=== PATIENT | female | born 1975 | race African-American/Black ===

== ENCOUNTER 2017-05-25 22:22 | Emergency (ER) | payer MEDICAID ==
[~2017-05-25] VITALS: Ht 180.3 cm; Wt 154.0 kg
[~2017-05-25 22:22] MED LIST: ALBUTEROL; FLOV44
[2017-05-25] MEDS ORDERED: ONDANSETRON HCL 4MG/2ML VIAL IV STA (23:08)
[2017-05-25] MEDS ORDERED: MORPHINE SULFATE 4 MG/ML CPJ (NOT FOR IM USE) IV STA (23:08)
[2017-05-25] MEDS ORDERED: FAMOTIDINE 20MG/2ML VIAL IV STA (23:08)
[2017-05-25] MEDS ORDERED: SODIUM CHLORIDE 0.9% 1,000 ML IV ONE (23:08)
[2017-05-25 23:30] LABS: BASOPHILS % 0.7 % (0.0-2.0); EOSINOPHILS % 0.4 % (0.0-5.0); HEMATOCRIT. 33.1 % (36.0-48.0); HEMOGLOBIN. 10.8 g/dL (12.0-16.0); LYMPHOCYTES % 12.5 % (20.0-50.0); MEAN CORPUSCULAR HEMOGLOBIN 25.4 pg (28.0-32.0); MEAN CORPUSCULAR VOLUME 77.7 fL (81.0-99.0); MEAN PLATELET VOLUME 7.3 fl (7.4-10.4); NEUTROPHILS % 83.4 % (40.0-76.0); PLATELET 475 x1000/uL (130-400); RED BLOOD CELL COUNT 4.26 mill/uL (4.2-5.4)
[2017-05-25 23:38] LABS: CARBON DIOXIDE 28 mEq/L (21-32); CHLORIDE 102 mEq/L (98-107); ETHANOL BLOOD < 10 mg/dL
[2017-05-26 00:33] LABS: CLARITY URINE CLOUDY (CLEAR); COLOR URINE YELLOW (YELLOW); KETONES URINE NEGATIVE (NEGATIVE); LEUKOCYTE ESTERASE URINE NEGATIVE (NEGATIVE); NITRITE URINE NEGATIVE (NEGATIVE); OCCULT BLOOD URINE NEGATIVE (NEGATIVE); PH URINE >=9.0 (4.5-8.0); PROTEIN URINE TRACE (NEGATIVE); SPECIFIC GRAVITY URINE 1.024 (1.005-1.030); UROBILINOGEN URINE 0.2 E.U./dL (0.2-1.0)
[2017-05-26 00:47] LABS: *AMPHETAMINES SCREEN URINE NEGATIVE (NEGATIVE); *BARBITURATES SCREEN URINE NEGATIVE (NEGATIVE); *BENZODIAZEPINES SCREEN URINE NEGATIVE (NEGATIVE); *COCAINE SCREEN URINE NEGATIVE (NEGATIVE); METHADONE URINE SCREEN NEGATIVE (NEGATIVE); PHENCYCLIDINE URINE SCREEN NEGATIVE (NEGATIVE)
[2017-05-26 01:03] LABS: CANNABINOID URINE SCREEN PRESUMTIVE POSITIVE (NEGATIVE); OPIATES URINE SCREEN PRESUMTIVE POSITIVE (NEGATIVE)
[2017-05-26] MEDS ORDERED: SODIUM CHLORIDE 0.9% 1,000 ML IV ONE (02:24)
[2017-05-26] MEDS ORDERED: MORPHINE SULFATE 4 MG/ML CPJ (NOT FOR IM USE) IV STA (02:24)
[2017-05-26] MEDS ORDERED: ONDANSETRON 4MG ODT PO STA (02:24)
[2017-05-26] MEDS ORDERED: LORAZEPAM 2MG/ML CPJ IV ONE (04:45)
[2017-05-26 06:28] VITALS: BP 128/75
== END 2017-05-26 07:18 | disposition home or self-care (01) ==
LOC: ER 22:22
DX: K52.9 Noninfective gastroenteritis and colitis, unspecified (principal); R06.02 Shortness of breath; Z88.6 Allergy status to analgesic agent; Z88.8 Allergy status to other drugs, medicaments and biological substances
CPT/HCPCS: 36415; 71010; 74176; 80053; 80305; 81001; 81025; 83690; 85025; 96361; 96374; 96375; 96376; 99285; G0482; J2060; J2270; J2405; J3490; J7030; Q0162; Z7610

== ENCOUNTER 2018-02-06 13:22 | Inpatient (IN) | payer SELFPAY ==
[~2018-02-06] VITALS: Ht 180.3 cm; Wt 179.2 kg
[2018-02-06] MEDS ORDERED: MORPHINE SULFATE 4 MG/ML CPJ (NOT FOR IM USE) IV STA (13:55)
[2018-02-06] MEDS ORDERED: SODIUM CHLORIDE 0.9% 1,000 ML IV ONE (13:55)
[2018-02-06] MEDS ORDERED: FAMOTIDINE 20MG/2ML VIAL IV STA (13:55)
[2018-02-06] MEDS ORDERED: ONDANSETRON HCL 4MG/2ML INJ IV STA (13:55)
[2018-02-06 16:25] LABS: BASOPHILS % 0.9 % (0.0-2.0); EOSINOPHILS % 0.5 % (0.0-5.0); HEMATOCRIT. 32.9 % (36.0-48.0); HEMOGLOBIN. 10.6 g/dL (12.0-16.0); LYMPHOCYTES % 11.6 % (20.0-50.0); MEAN CORPUSCULAR HEMOGLOBIN 23.8 pg (28.0-32.0); MEAN CORPUSCULAR VOLUME 73.9 fL (81.0-99.0); MEAN PLATELET VOLUME 7.2 fl (7.4-10.4); MONOCYTES % 3.5 % (2.0-8.0); NEUTROPHILS % 83.5 % (40.0-76.0); PLATELET 453 x1000/uL (130-400); RED BLOOD CELL COUNT 4.45 mill/uL (4.2-5.4); RED CELL DISTRIBUTION WIDTH 17.7 % (11.6-14.6)
[2018-02-06 16:30] LABS: CHLORIDE 102 mEq/L (98-107)
[2018-02-06 16:42] LABS: CLARITY URINE CLEAR (CLEAR); COLOR URINE YELLOW (YELLOW); KETONES URINE NEGATIVE (NEGATIVE); LEUKOCYTE ESTERASE URINE NEGATIVE (NEGATIVE); NITRITE URINE NEGATIVE (NEGATIVE); OCCULT BLOOD URINE NEGATIVE (NEGATIVE); PH URINE >=9.0 (4.5-8.0); PROTEIN URINE NEGATIVE (NEGATIVE); SPECIFIC GRAVITY URINE 1.019 (1.005-1.030); UROBILINOGEN URINE 0.2 E.U./dL (0.2-1.0)
[2018-02-06] MEDS ORDERED: ENALAPRIL 2.5MG/2ML VIAL 2ML IV ONE (16:45)
[2018-02-06] MEDS ORDERED: PIPERACILLIN/TAZ 3.375G PREMIX 50 ML IV ONE (16:45)
[2018-02-06 16:47] LABS: HCG SCREEN NEGATIVE
[2018-02-06 16:55] LABS: *AMPHETAMINES SCREEN URINE NEGATIVE (NEGATIVE); *BARBITURATES SCREEN URINE NEGATIVE (NEGATIVE); *BENZODIAZEPINES SCREEN URINE NEGATIVE (NEGATIVE); *COCAINE SCREEN URINE NEGATIVE (NEGATIVE); METHADONE URINE SCREEN NEGATIVE (NEGATIVE)
[2018-02-06 16:56] LABS: PHENCYCLIDINE URINE SCREEN NEGATIVE (NEGATIVE)
[2018-02-06 16:57] LABS: CANNABINOID URINE SCREEN PRESUMTIVE POSITIVE (NEGATIVE); OPIATES URINE SCREEN PRESUMTIVE POSITIVE (NEGATIVE)
[2018-02-06] MEDS ORDERED: ONDANSETRON HCL 4MG/2ML INJ IV PRN (17:45)
[2018-02-06] MEDS ORDERED: ACETAMINOPHEN 650MG SUPP PR PRN (17:45)
[2018-02-06] MEDS ORDERED: ACETAMINOPHEN 325MG TABLET PO PRN (17:45)
[2018-02-06] MEDS ORDERED: ACETAMINOPHEN 650MG/20.3ML UDC GT PRN (17:45)
[2018-02-06 20:00] VITALS: BP 165/85
[2018-02-06] MEDS ORDERED: ONDANSETRON 4MG ODT PO PRN (20:00)
[2018-02-06] MEDS ORDERED: ALBU18HF2 IH (20:44)
[2018-02-06] MEDS ORDERED: ATROV IH (20:44)
[2018-02-06] MEDS: CLONIDINE 0.1MG TABLET PO SCH (21:28)
[2018-02-06] MEDS: HYDROCODONE/ACETAMINOPHEN 5/325MG TABLET PO PRN (21:32)
[2018-02-06 22:23] VITALS: BP 168/85
[2018-02-06] MEDS ORDERED: PROMETHAZINE/DEXTROMETHORPHAN 6.25-15MG/5ML BOTTLE 120ML PO PRN (23:00)
[2018-02-07] VITALS (7 sets, daily range): BP systolic 133–156; BP diastolic 43–92
[2018-02-07 00:40] LABS: CREATINE KINASE 128 IU/L (26-192); CREATINE KINASE MB FRACTION 1.1 ng/mL (0.5-3.6)
[2018-02-07] MEDS: HYDROCODONE/ACETAMINOPHEN 5/325MG TABLET PO PRN (02:11)
[2018-02-07 07:27] LABS: BASOPHILS % 0.3 % (0.0-2.0); EOSINOPHILS % 2.5 % (0.0-5.0); HEMATOCRIT. 27.5 % (36.0-48.0); HEMOGLOBIN. 9.1 g/dL (12.0-16.0); LYMPHOCYTES % 27.7 % (20.0-50.0); MEAN CORPUSCULAR HEMOGLOBIN 24.3 pg (28.0-32.0); MEAN CORPUSCULAR VOLUME 73.9 fL (81.0-99.0); MEAN PLATELET VOLUME 7.4 fl (7.4-10.4); MONOCYTES % 4.8 % (2.0-8.0); NEUTROPHILS % 64.7 % (40.0-76.0); PLATELET 399 x1000/uL (130-400); RED BLOOD CELL COUNT 3.73 mill/uL (4.2-5.4)
[2018-02-07 07:38] LABS: CHLORIDE 105 mEq/L (98-107)
[2018-02-07 07:46] LABS: LDL CHOLESTEROL 85 mg/dL (5-100)
[2018-02-07 07:47] LABS: CREATINE KINASE 113 IU/L (26-192); CREATINE KINASE MB FRACTION < 1.0 ng/mL (0.5-3.6); HDL CHOLESTEROL 18 mg/dL (40-59); T4 FREE 0.98 ng/dL (0.76-1.46)
[2018-02-07] MEDS: CLONIDINE 0.1MG TABLET PO SCH (08:47)
[2018-02-07] MEDS ORDERED: LOSARTAN POTASSIUM 50 MG TABLET PO SCH (09:00)
[2018-02-07] MEDS ORDERED: OMEPRAZOLE 20MG CAPSULE EXTENDED RELEASE PO SCH (10:45)
[2018-02-07] MEDS ORDERED: PROMETHAZINE HCL 25MG TABLET PO PRN (12:15)
[2018-02-07 14:16] LABS: TOTAL IRON BINDING CAPACITY 268 ug/dL (250-450)
[2018-02-07 14:44] LABS: FOLIC ACID (FOLATE) SERUM 4.7 ng/mL (>5.38)
== END 2018-02-07 15:48 | disposition left against medical advice (07) ==
LOC: ER 14:01 → 6WST 16:31 → ENRESERV 17:09 → 6WST 19:00 → 3WST 23:25
PROVIDERS: ADMIT Internal Medicine; ATTEND Internal Medicine
DX: K80.20 Calculus of gallbladder without cholecystitis without obstruction (principal); E66.01 Morbid (severe) obesity due to excess calories; R16.0 Hepatomegaly, not elsewhere classified; E88.09 Other disorders of plasma-protein metabolism, not elsewhere classified; K92.2 Gastrointestinal hemorrhage, unspecified; Z68.43 Body mass index [BMI] 50.0-59.9, adult; D64.9 Anemia, unspecified; J44.9 Chronic obstructive pulmonary disease, unspecified; I10 Essential (primary) hypertension; G89.29 Other chronic pain; D72.829 Elevated white blood cell count, unspecified; E87.6 Hypokalemia; M54.9 Dorsalgia, unspecified; Z53.21 Procedure and treatment not carried out due to patient leaving prior to being seen by health care provider; Z82.49 Family history of ischemic heart disease and other diseases of the circulatory system; Z98.891 History of uterine scar from previous surgery; Z88.8 Allergy status to other drugs, medicaments and biological substances; Z79.899 Other long term (current) drug therapy
CPT/HCPCS: 36415; 71045; 76705; 80053; 80061; 80305; 81003; 82550; 82553; 82607; 82728; 82746; 83540; 83550; 83690; 84439; 84443; 84481; 84484; 84703; 85025; 87040; 93005; 96361; 96374; 96375; 99291; J2270; J2405; J2543; J3490; J7030

== ENCOUNTER 2018-12-31 19:55 | Emergency (ER) | payer SELFPAY ==
[~2018-12-31] VITALS: Ht 170.2 cm; Wt 147.0 kg
[~2018-12-31 19:55] MED LIST changes: +ALBU18HF2 IH; -ALBUTEROL; +ATROV IH; -FLOV44
[2018-12-31] MEDS ORDERED: SODIUM CHLORIDE 0.9% 1,000 ML IV ONE (20:40)
[2018-12-31] MEDS ORDERED: MORPHINE SULFATE 4 MG/ML CPJ (NOT FOR IM USE) IV STA (20:40)
[2018-12-31] MEDS ORDERED: ONDANSETRON HCL 4MG/2ML INJ IV STA (20:40)
[2018-12-31] MEDS ORDERED: FAMOTIDINE 20MG/2ML VIAL IV ONE (20:45)
[2018-12-31 21:20] LABS: BASOPHILS % 0.5 % (0.0-2.0); EOSINOPHILS % 0.3 % (0.0-5.0); HEMATOCRIT. 31.6 % (36.0-48.0); HEMOGLOBIN. 9.9 g/dL (12.0-16.0); LYMPHOCYTES % 13.8 % (20.0-50.0); MEAN CORPUSCULAR HEMOGLOBIN 21.9 pg (28.0-32.0); MEAN CORPUSCULAR VOLUME 69.9 fL (81.0-99.0); MEAN PLATELET VOLUME 7.5 fl (7.4-10.4); MONOCYTES % 4.1 % (2.0-8.0); NEUTROPHILS % 81.3 % (40.0-76.0); PLATELET 431 x1000/uL (130-400); RED BLOOD CELL COUNT 4.52 mill/uL (4.2-5.4); RED CELL DISTRIBUTION WIDTH 19.1 % (11.6-14.6)
[2018-12-31 21:21] LABS: CHLORIDE 103 mEq/L (98-107); PROTHROMBIN TIME 10.1 sec (9.6-11.0)
[2018-12-31 21:25] LABS: ETHANOL BLOOD < 10 mg/dL
[2018-12-31 21:36] LABS: HCG SCREEN NEGATIVE
[2018-12-31] MEDS ORDERED: LORAZEPAM 2MG/ML CPJ IV ONE ×2 (22:15→23:30)
[2018-12-31 22:42] LABS: PLATELET ESTIMATE INCREASED
[2018-12-31 23:12] LABS: CLARITY URINE CLEAR (CLEAR); COLOR URINE YELLOW (YELLOW); KETONES URINE NEGATIVE (NEGATIVE); LEUKOCYTE ESTERASE URINE NEGATIVE (NEGATIVE); NITRITE URINE NEGATIVE (NEGATIVE); OCCULT BLOOD URINE NEGATIVE (NEGATIVE); PH URINE >=9.0 (4.5-8.0); PROTEIN URINE NEGATIVE (NEGATIVE); SPECIFIC GRAVITY URINE 1.008 (1.005-1.030); UROBILINOGEN URINE 0.2 E.U./dL (0.2-1.0)
[2018-12-31 23:24] LABS: *AMPHETAMINES SCREEN URINE NEGATIVE (NEGATIVE); *BARBITURATES SCREEN URINE NEGATIVE (NEGATIVE); *BENZODIAZEPINES SCREEN URINE NEGATIVE (NEGATIVE); *COCAINE SCREEN URINE NEGATIVE (NEGATIVE); METHADONE URINE SCREEN NEGATIVE (NEGATIVE)
[2018-12-31 23:25] LABS: PHENCYCLIDINE URINE SCREEN NEGATIVE (NEGATIVE)
[2018-12-31 23:26] LABS: CANNABINOID URINE SCREEN PRESUMTIVE POSITIVE (NEGATIVE); OPIATES URINE SCREEN PRESUMTIVE POSITIVE (NEGATIVE)
[2019-01-01 01:30] VITALS: BP 139/82
== END 2019-01-01 02:02 | disposition home or self-care (01) ==
LOC: ER 19:55 → CANBEDREQ 01-01 02:52
DX: K29.70 Gastritis, unspecified, without bleeding (principal); K80.20 Calculus of gallbladder without cholecystitis without obstruction
CPT/HCPCS: 36415; 71045; 80053; 80305; 80320; 81003; 81025; 83690; 83880; 84484; 84703; 85025; 85610; 93005; 96361; 96374; 96375; 96376; 99284; J2060; J2270; J2405; J3490; J7030; G0480

== ENCOUNTER 2020-11-20 09:36 | Emergency (ER) | payer MEDICAID ==
[~2020-11-20] VITALS: Ht 180.3 cm; Wt 158.0 kg
[2020-11-20 09:38] VITALS: BP 139/88
[2020-11-20] MEDS ORDERED: DIPHENHYDRAMINE 50MG CAPSULE PO ONE (10:00)
[2020-11-20] MEDS ORDERED: PREDNISONE 20MG TABLET PO ONE (10:00)
[2020-11-20] MEDS ORDERED: P50 MT (10:14)
[2020-11-20] MEDS ORDERED: CEPH500C2 MT (10:14)
[2020-11-20] MEDS ORDERED: DIPH25CA83 MT (10:14)
== END 2020-11-20 10:26 | disposition home or self-care (01) ==
LOC: ER 09:36
DX: T65.6X1A Toxic effect of paints and dyes, not elsewhere classified, accidental (unintentional), initial encounter (principal); L23.4 Allergic contact dermatitis due to dyes; Y92.091 Bathroom in other non-institutional residence as the place of occurrence of the external cause; Z91.09 Other allergy status, other than to drugs and biological substances
CPT/HCPCS: 99283; J7512; Q0163

== ENCOUNTER 2021-02-16 18:23 | Emergency (ER) | payer SELFPAY ==
[~2021-02-16] VITALS: Ht 172.7 cm; Wt 136.0 kg
[~2021-02-16 18:23] MED LIST changes: +CEPH500C2 MT; +DIPH25CA83 MT; +FAMO40TA70 MT; +HYDR-4346 MT; +ONDA4TAB5 MT; +P50 MT
[2021-02-16] MEDS ORDERED: MORPHINE SULFATE 4 MG/ML CPJ (NOT FOR IM USE) IV STA ×2 (20:38→23:02)
[2021-02-16] MEDS ORDERED: ONDANSETRON HCL 4MG/2ML INJ IV STA (20:38)
[2021-02-16] MEDS ORDERED: FAMOTIDINE 20MG/2ML VIAL IV STA (20:38)
[2021-02-16 21:29] LABS: BASOPHILS % 0.4 % (0.0-2.0); EOSINOPHILS % 0.3 % (0.0-5.0); HEMATOCRIT. 30.2 % (36.0-48.0); HEMOGLOBIN. 9.8 g/dL (12.0-16.0); LYMPHOCYTES % 13.1 % (20.0-50.0); MEAN CORPUSCULAR HEMOGLOBIN 21.2 pg (28.0-32.0); MEAN CORPUSCULAR VOLUME 65.8 fL (81.0-99.0); MEAN PLATELET VOLUME 7.6 fl (7.4-10.4); MONOCYTES % 2.5 % (2.0-8.0); NEUTROPHILS % 83.7 % (40.0-76.0); PLATELET 540 x1000/uL (130-400); RED CELL DISTRIBUTION WIDTH 20.8 % (11.6-14.6)
[2021-02-16 21:36] LABS: CHLORIDE 108 mEq/L (98-107)
[2021-02-16 21:52] LABS: HCG SCREEN NEGATIVE
[2021-02-16 21:53] LABS: PLATELET ESTIMATE INCREASED
[2021-02-16] MEDS ORDERED: PIPERACILLIN/TAZ 3.375G PREMIX 50 ML IV ONE (23:15)
[2021-02-17 01:25] VITALS: BP 145/72
== END 2021-02-17 01:38 | disposition home or self-care (01) ==
LOC: ER 18:28
DX: K81.9 Cholecystitis, unspecified (principal); Z79.899 Other long term (current) drug therapy; Z87.19 Personal history of other diseases of the digestive system
CPT/HCPCS: 36415; 80053; 83690; 84703; 85025; 96365; 96375; 96376; 99285; J2270; J2405; J2543; J3490

== ENCOUNTER 2021-04-10 14:25 | Emergency (ER) | payer SELFPAY ==
[~2021-04-10] VITALS: Ht 177.8 cm; Wt 114.0 kg
[2021-04-10] MEDS ORDERED: ONDANSETRON HCL 4MG/2ML INJ IV ONE (14:45)
[2021-04-10] MEDS ORDERED: MORPHINE SULFATE 4 MG/ML CPJ (NOT FOR IM USE) IV ONE (14:45)
[2021-04-10 14:55] LABS: BASOPHILS % 0.3 % (0.0-2.0); HEMATOCRIT. 33.2 % (36.0-48.0); HEMOGLOBIN. 10.8 g/dL (12.0-16.0); MEAN CORPUSCULAR HEMOGLOBIN 21.4 pg (28.0-32.0); MEAN CORPUSCULAR VOLUME 65.8 fL (81.0-99.0); MEAN PLATELET VOLUME 7.2 fl (7.4-10.4); MONOCYTES % 4.9 % (2.0-8.0); NEUTROPHILS % 82.8 % (40.0-76.0); PLATELET 389 x1000/uL (130-400); RED BLOOD CELL COUNT 5.04 mill/uL (4.2-5.4); RED CELL DISTRIBUTION WIDTH 19.9 % (11.6-14.6)
[2021-04-10] MEDS ORDERED: SODIUM CHLORIDE 0.9% 1,000 ML IV ONE (15:00)
[2021-04-10 15:05] LABS: PROTHROMBIN TIME 10.3 sec (9.6-11.0)
[2021-04-10 15:09] LABS: CHLORIDE 104 mEq/L (98-107)
[2021-04-10 15:52] LABS: CLARITY URINE CLOUDY (CLEAR); COLOR URINE YELLOW (YELLOW); KETONES URINE TRACE (NEGATIVE); LEUKOCYTE ESTERASE URINE NEGATIVE (NEGATIVE); NITRITE URINE POSITIVE (NEGATIVE); OCCULT BLOOD URINE NEGATIVE (NEGATIVE); PH URINE 6.5 (4.5-8.0); PROTEIN URINE 2+ (NEGATIVE); SPECIFIC GRAVITY URINE 1.029 (1.005-1.030); UROBILINOGEN URINE 0.2 E.U./dL (0.2-1.0)
[2021-04-10 16:20] LABS: PLATELET ESTIMATE NORMAL
[2021-04-10] MEDS ORDERED: HYDROCODONE/ACETAMINOPHEN 5/325MG TABLET PO ONE (16:30)
[2021-04-10] MEDS ORDERED: TRAM50TA3 MT (18:45)
[2021-04-10] MEDS ORDERED: CEPH500T MT (18:45)
[2021-04-10 18:59] VITALS: BP 143/72
== END 2021-04-10 19:12 | disposition home or self-care (01) ==
LOC: ER 14:25
DX: K80.50 Calculus of bile duct without cholangitis or cholecystitis without obstruction (principal); I49.9 Cardiac arrhythmia, unspecified; Z88.8 Allergy status to other drugs, medicaments and biological substances; Z88.6 Allergy status to analgesic agent; Z98.890 Other specified postprocedural states
CPT/HCPCS: 36415; 76705; 80053; 81003; 83690; 85025; 85610; 93005; 96361; 96374; 96375; 99285; J2270; J2405; Z7610

== ENCOUNTER 2024-02-03 18:20 | Emergency (ER) | payer MEDICAID ==
[~2024-02-03] VITALS: Ht 177.8 cm; Wt 100.0 kg
[~2024-02-03 18:20] MED LIST changes: +CEPH500T MT; +TRAM50TA3 MT
[2024-02-03 18:22] VITALS: BP 165/102; PULSE 72; TEMP 98.6; O2SAT 100
[2024-02-03 18:47] LABS: BASOPHILS % 0.9 % (0.0-2.0); EOSINOPHILS % 1.2 % (0.0-5.0); HEMATOCRIT. 36.5 % (36.0-48.0); HEMOGLOBIN. 11.9 g/dL (12.0-16.0); LYMPHOCYTES % 27.8 % (20.0-50.0); MEAN CORPUSCULAR HEMOGLOBIN 28.5 pg (28.0-32.0); MEAN CORPUSCULAR HGB CONC 32.7 g/dL (31.0-37.0); MEAN CORPUSCULAR VOLUME 87.1 fL (81.0-99.0); MEAN PLATELET VOLUME 7.1 fl (7.4-10.4); MONOCYTES % 4.6 % (2.0-8.0); NEUTROPHILS % 65.5 % (40.0-76.0); PLATELET 373 x1000/uL (130-400); RED CELL DISTRIBUTION WIDTH 15.2 % (11.6-14.6); WHITE BLOOD COUNT 11.3 x1000/uL (4.5-11.0)
[2024-02-03 18:54] LABS: CHLORIDE 105 mEq/L (98-107); POTASSIUM 3.5 mEq/L (3.5-5.1); SODIUM 137 mEq/L (136-145)
[2024-02-03 18:55] LABS: CARBON DIOXIDE 27 mEq/L (21-32)
[2024-02-03 18:56] LABS: CALCIUM 9.1 mg/dL (8.7-10.4)
[2024-02-03 19:00] LABS: CREATININE 0.8 mg/dL (0.6-1.0); GLUCOSE 91 mg/dL (70-105); UREA NITROGEN BLOOD 7 mg/dL (9-23)
[2024-02-03 19:30] VITALS: RESP 17
[2024-02-03] MEDS: ONDANSETRON 4MG ODT PO ONE (19:30)
[2024-02-03] MEDS: HYDROCODONE/ACETAMINOPHEN 5/325MG TABLET PO ONE (19:30)
[2024-02-03 19:53] LABS: CHLORIDE 104 mEq/L (98-107); POTASSIUM 3.5 mEq/L (3.5-5.1); SODIUM 137 mEq/L (136-145)
[2024-02-03 19:54] LABS: CARBON DIOXIDE 28 mEq/L (21-32)
[2024-02-03 19:55] LABS: CALCIUM 9.1 mg/dL (8.7-10.4)
[2024-02-03 19:58] LABS: INR 0.9; PROTHROMBIN TIME 10.6 sec (9.6-11.0)
[2024-02-03 19:59] LABS: CREATININE 0.9 mg/dL (0.6-1.0); GLUCOSE 97 mg/dL (70-105)
[2024-02-03 20:00] LABS: UREA NITROGEN BLOOD 9 mg/dL (9-23)
== END 2024-02-03 19:10 | disposition left against medical advice (07) ==
LOC: ER 18:20
DX: R10.9 Unspecified abdominal pain (principal); Z53.21 Procedure and treatment not carried out due to patient leaving prior to being seen by health care provider
CPT/HCPCS: 36415; 80048; 85025; 83690; 85610; Q0162; 99283

== ENCOUNTER 2024-02-04 04:32 | Emergency (ER) | payer MEDICAID ==
[~2024-02-04] VITALS: Ht 175.3 cm; Wt 100.0 kg
[2024-02-04 04:33] VITALS: O2SAT 100
[2024-02-04] MEDS: SODIUM CHLORIDE 0.9% 1,000 ML IV ONE (05:45)
[2024-02-04] MEDS: ONDANSETRON HCL 4MG/2ML INJ IV STA (06:41)
[2024-02-04] MEDS: KETOROLAC 30MG/ML VIAL IV STA (06:41)
[2024-02-04 06:47] LABS: ALANINE AMINOTRANSFERASE < 7 IU/L (10-49); ALBUMIN 4.2 g/dL (3.2-4.8); ASPARTATE AMINOTRANSFERASE 13 IU/L (<34); BILIRUBIN DIRECT 0.3 mg/dL (<=3.0); BILIRUBIN TOTAL 0.9 mg/dL (0.1-1.0); PROTEIN TOTAL 7.3 g/dL (6.0-8.3)
[2024-02-04] MEDS: MORPHINE SULFATE 4 MG/ML INJ (FOR IV/IM USE) IV ONE (08:58)
[2024-02-04 10:01] VITALS: BP 145/87; PULSE 61; RESP 14; TEMP 37.16964; O2SAT 100
== END 2024-02-04 10:52 | disposition left against medical advice (07) ==
LOC: ER 04:32
DX: R10.11 Right upper quadrant pain (principal); R11.2 Nausea with vomiting, unspecified; K80.20 Calculus of gallbladder without cholecystitis without obstruction; Z98.890 Other specified postprocedural states; Z79.899 Other long term (current) drug therapy; Z88.2 Allergy status to sulfonamides; Z88.8 Allergy status to other drugs, medicaments and biological substances
CPT/HCPCS: 80076; 83690; 36415; 76705; 96361; 96374; 96375; 99285; J1885; J2405; J2270; J7030; Z7610 ×5